=== PATIENT | female | born 1960 | race Caucasian/White ===

== ENCOUNTER 2017-12-15 18:13 | Emergency (ER) | payer OTHER ==
[~2017-12-15] VITALS: Ht 175.3 cm; Wt 78.0 kg
[~2017-12-15 18:13] MED LIST: ATI2I IV; CLINDAMYCI600 MG/50 IV; COL100UDC NG; GLU500 PO; KEP500 NG; MVIL NG; PROT40I IV; REM15 PO; SER25 NG; VITC PO; WEL75 PO; ZES10 PO
[2017-12-15 18:21] VITALS: Ht 175.3 cm; Wt 78.0 kg
[2017-12-15 19:42] VITALS: BP 132/72
== END 2017-12-15 19:42 | disposition home or self-care (01) ==
LOC: ED 18:13
DX: J40 Bronchitis, not specified as acute or chronic (principal); J06.9 Acute upper respiratory infection, unspecified; R07.81 Pleurodynia; E11.9 Type 2 diabetes mellitus without complications; E78.00 Pure hypercholesterolemia, unspecified; M19.90 Unspecified osteoarthritis, unspecified site
CPT/HCPCS: J1885; J7613; J7644